=== PATIENT | female | born 1945 | race Caucasian/White ===

== ENCOUNTER → 2016-09-25 | Outpatient (CLI) | payer BC, OTHER ==
[~2016-09-25] VITALS: Ht 165.1 cm; Wt 66.8 kg
[~2016-09-25] MED LIST: ACET-1256 PO; AMOX50TA PO; CHOLTAB3 PO; CITA10TA4 PO; CLON1TAB3 PO; CYAN100020 PO; CYM/30 PO; OMEG10007 PO; PRD/1 PO; PRLSR20 PO; RXC5 PO
[2016-09-25 14:57] VITALS: BP 125/78; PULSE 56; Ht 165.1 cm; Wt 66.8 kg
== END | disposition home or self-care (01) ==
LOC: C.NEUR 13:51
PROVIDERS: ATTEND Internal Medicine Pulmonary Disease
DX: G47.33 Obstructive sleep apnea (adult) (pediatric) (principal); G47.19 Other hypersomnia; G25.81 Restless legs syndrome

== ENCOUNTER → 2016-11-19 | Outpatient (CLI) | payer BC | END | disposition home or self-care (01) | LOC: C.PAPS 07:58 | PROVIDERS: ATTEND Obstetrics & Gynecology | DX: Z12.4 Encounter for screening for malignant neoplasm of cervix (principal); R87.616 Satisfactory cervical smear but lacking transformation zone; N81.4 Uterovaginal prolapse, unspecified; Z78.0 Asymptomatic menopausal state ==

== ENCOUNTER → 2017-01-01 | Outpatient (CLI) | payer BC ==
--- NOTE | 2017-01-01 16:16 | MAMMOGRAPHY REPORT ---
BILATERAL DIGITAL SCREENING MAMMOGRAM WITH CAD: 01/01/2017 CLINICAL HISTORY: Routine screening. TECHNIQUE: Bilateral CC, MLO and repeat left MLO views were obtained. Current study was also evaluat ed with a Computer Aided Detection (CAD) system. COMPARISON: Comparison is made to exams dated: 12/29/2015 mammogram, 12/27/2014 mammogram, 12/24/2013 allan mogram, 12/11/2012 mammogram, 12/07/2011 mammogram, and 12/06/2010 mammogram - [facility] ter. BREAST COMPOSITION: The tissue of both breasts is heterogeneously dense, which may obscure small mas ses. FINDINGS: There is an asymmetry in the lateral posterior left breast on the CC view that is increasi ngly conspicuous compared to prior exams. This is thought to project superiorly on the MLO view. Ad ditional spot compression tomosynthesis views and possibly ultrasound are recommended. There are scattered and grouped stable microcalcifications and benign rim calcifications in the breas ts. Minimal vascular calcification. No other suspicious mass, architectural distortion or cluster of microcalcifications is seen. IMPRESSION: ACR BI-RADS CATEGORY 0: INCOMPLETE EVALUATION: NEED ADDITIONAL IMAGING EVALUATION The asymmetry in the lateral left breast needs additional evaluation. The patient will be called to schedule an appointment. Approximately 10% of breast cancers are not detected with mammography. A negative mammographic report should not delay biopsy if a clinically suggestive mass is present. Gabriela Madera M.D. ay/:01/01/2017 15:30:59 Metal Sorter: Eliza LESLIE(Sage)(Laurence), [facility] letter sent: Addl Imaging 0 BI-RADS Code: ACR BI-RADS Category 0: Incomplete Evaluation: Need Additional Imaging Evaluation
== END | disposition home or self-care (01) ==
LOC: C.MAMM 14:09
PROVIDERS: ATTEND Obstetrics & Gynecology
DX: Z12.31 Encounter for screening mammogram for malignant neoplasm of breast (principal)

== ENCOUNTER → 2017-01-07 | Outpatient (CLI) | payer BC ==
--- NOTE | 2017-01-07 13:13 | MAMMOGRAPHY REPORT ---
UNILATERAL LEFT DIGITAL DIAGNOSTIC MAMMOGRAM TOMOSYNTHESIS AND TARGETED LEFT ULTRASOUND: 01/07/2017 CLINICAL HISTORY: 71-year-old woman called back from screening mammography for an asymmetry in the la teral posterior left breast, best seen on the CC view. TECHNIQUE: Spot compression left CC and MLO today digital and tomosynthesis images were obtained. COMPARISON: Comparison is made to exams dated: 01/01/2017 mammogram, 12/29/2015 mammogram, 12/27/2014 mamm ogram, 12/24/2013 mammogram, 12/11/2012 mammogram, and 12/07/2011 mammogram - [facility] er. BREAST COMPOSITION: The tissue of the left breast is heterogeneously dense, which may obscure small masses. FINDINGS: There is effacement of the asymmetry in the lateral posterior left breast with the spot com pression CC view. No corresponding abnormality, persistent mass or architectural distortion is seen on the associated tomosynthesis images. No suspicious clustered microcalcifications are seen. A few benign appearing punctate microcalcifications and a rim calcification are present in the visualized left breast. Real-time high-resolution ultrasound was performed throughout the lateral left breast including the r etroareolar aspect of the left breast. Normal fibroglandular tissue is seen. A few scattered benign anechoic cysts are also seen. No suspicious solid or cystic mass. IMPRESSION: ACR BI-RADS CATEGORY 2: BENIGN, TARGETED ULTRASOUND ACR BI-RADS CATEGORY 2: BENIGN Effacement of the left lateral asymmetry, and no suspicious sonographic correlate. There is no mammo graphic or targeted sonographic evidence of malignancy in the left breast. Return to annual mammogram screening schedule is recommended. The patient has been verbally notified of the results. Approximately 10% of breast cancers are not detected with mammography. A negative mammographic report should not delay biopsy if a clinically suggestive mass is present. Gabriela Madera M.D. ay/:01/07/2017 12:34:28 International Controller: Ramandeep LESLIE(Sage)(Laurence), [facility] letter sent: Normal 1/2 BI-RADS Code: ACR BI-RADS Category 2: Benign Ultrasound BI-RADS: ACR BI-RADS Category 2: Benign
== END | disposition home or self-care (01) ==
LOC: C.MAMM 08:44
PROVIDERS: ATTEND Obstetrics & Gynecology
DX: R92.8 Other abnormal and inconclusive findings on diagnostic imaging of breast (principal)

== ENCOUNTER → 2017-03-06 | Outpatient (CLI) | payer BC ==
[2017-03-06 09:38] LABS: HEMATOCRIT 38.5 % (37-47); MEAN CELL VOLUME 94.1 fL (80-100); MEAN CORPUSCULAR HEMOGLOBIN 31.3 pg (25-34); MEAN CORPUSCULAR HGB CONC 33.2 g/dl (32-36); MEAN PLATELET VOLUME 9.5 fL (7.4-10.4); PLATELET COUNT 236 K/uL (130-400); RED BLOOD COUNT 4.09 M/uL (4.2-5.4); WHITE BLOOD COUNT 5.35 K/uL (4.8-10.8)
[2017-03-06 10:13] LABS: BLOOD UREA NITROGEN 17 mg/dl (7-18); BUN/CREATININE RATIO 23.5 (10-20); CALCIUM 8.7 mg/dl (8.5-10.1); CARBON DIOXIDE 28 mmol/L (21-32); CHLORIDE 111 mmol/L (98-107); CREATININE 0.74 mg/dl (0.60-1.20); GLUCOSE 87 mg/dl (70-99); POTASSIUM 3.4 mmol/L (3.5-5.1); SODIUM 145 mmol/L (136-145)
== END | disposition home or self-care (01) ==
LOC: C.LAB 08:52
PROVIDERS: ATTEND Family Medicine
DX: Z11.59 Encounter for screening for other viral diseases (principal); K21.9 Gastro-esophageal reflux disease without esophagitis; E53.8 Deficiency of other specified B group vitamins

== ENCOUNTER → 2017-03-26 | Outpatient (CLI) | payer BC ==
[~2017-03-26] VITALS: Ht 160 cm; Wt 67.0 kg
[2017-03-26 14:08] VITALS: BP 113/70; PULSE 57; Ht 160 cm; Wt 67.0 kg
== END | disposition home or self-care (01) ==
LOC: C.NEUR 13:52
PROVIDERS: ATTEND Internal Medicine Pulmonary Disease
DX: G47.30 Sleep apnea, unspecified (principal); G47.00 Insomnia, unspecified

== ENCOUNTER → 2017-06-26 | Outpatient (CLI) | payer BC ==
[2017-06-26 10:39] LABS: BLOOD UREA NITROGEN 20 mg/dl (7-18); BUN/CREATININE RATIO 30.2 (10-20); CALCIUM 8.7 mg/dl (8.5-10.1); CARBON DIOXIDE 30 mmol/L (21-32); CHLORIDE 107 mmol/L (98-107); CHOLESTEROL 207 mg/dl (0-200); CREATININE 0.66 mg/dl (0.60-1.20); GLUCOSE 90 mg/dl (70-99); POTASSIUM 3.8 mmol/L (3.5-5.1); SODIUM 139 mmol/L (136-145); TRIGLYCERIDES 94 mg/dl (0-150); VERY LOW DENSITY LIPOPROT CALC 19 mg/dl
[2017-06-26 10:40] LABS: CHOLESTEROL/HDL RATIO 3.6; HDL CHOLESTEROL 58 mg/dl; LDL CHOLESTEROL CALCULATED 130 mg/dl
== END | disposition home or self-care (01) ==
LOC: C.LAB 09:36
PROVIDERS: ATTEND Family Medicine
DX: Z13.220 Encounter for screening for lipoid disorders (principal); E53.8 Deficiency of other specified B group vitamins; E87.6 Hypokalemia

== ENCOUNTER 2017-08-06 05:54 | Emergency (ER) | payer BC ==
[~2017-08-06] VITALS: Ht 165.1 cm; Wt 66.7 kg
[2017-08-06 05:58] VITALS: TEMP 37.9; Ht 165.1 cm; Wt 66.7 kg
[2017-08-06 06:25] VITALS: O2SAT 93
[2017-08-06] MEDS ORDERED: CITA20TA4 PO (06:25)
[2017-08-06] MEDS ORDERED: CLON0.5T3 PO (06:25)
[2017-08-06] MEDS ORDERED: MELA5CAP PO (06:25)
[2017-08-06] MEDS ORDERED: ACETAMINOPHEN 500 MG TAB PO STA (06:35)
[2017-08-06] MEDS ORDERED: IBUPROFEN 200 MG TAB PO STA (06:35)
[2017-08-06] MEDS ORDERED: ONDANSETRON INJ 2 MG/ML 2 ML VIAL IV STA (06:35)
[2017-08-06] MEDS ORDERED: SODIUM CHLORIDE 0.9% 500ML 500 ML IV STA (06:35)
[2017-08-06 06:41] LABS: BASO % 0.2 %; BASO ABS # 0.02 K/uL (0-0.2); EOS % 0.2 %; EOS ABS # 0.02 K/uL (0-0.5); HEMATOCRIT 42.2 % (37-47); HEMOGLOBIN 14.7 g/dL (12.0-16.0); IG# 0.02 K/uL (0.00-0.02); LYMPH % 16.6 %; LYMPH ABS # 1.45 K/uL (1.2-3.4); MEAN CELL VOLUME 93.2 fL (80-100); MEAN CORPUSCULAR HEMOGLOBIN 32.5 pg (25-34); MEAN CORPUSCULAR HGB CONC 34.8 g/dl (32-36); MEAN PLATELET VOLUME 9.3 fL (7.4-10.4); MONO % 9.3 %; MONO ABS # 0.81 K/uL (0.11-0.59); NEUT % 73.5 %; PLATELET COUNT 184 K/uL (130-400); RED CELL DISTRIBUTION WIDTH CV 13.9 % (11.5-14.5); RED CELL DISTRIBUTION WIDTH SD 47.5 fL (36.4-46.3); WHITE BLOOD COUNT 8.72 K/uL (4.8-10.8)
[2017-08-06] MEDS ORDERED: COUGH DROP (SUGAR FREE) LOZ 24 LOZ/1 BOX PO STA (06:46)
[2017-08-06 06:48] LABS: ALBUMIN 3.6 gm/dl (3.4-5.0); CALCIUM 8.4 mg/dl (8.5-10.1); CREATININE 0.9 mg/dl (0.60-1.20); POTASSIUM 3.8 mmol/L (3.5-5.1)
[2017-08-06 06:50] LABS: TOTAL PROTEIN 7.1 gm/dl (6.4-8.2)
--- NOTE | 2017-08-06 06:54 | EMERGENCY ROOM VISIT NOTE ---
History Report prepared by Mariia: Rodney Blount Under the Supervision of: Dr. Donald Doan M.D. First contact with patient: 06:33 Chief Complaint: FLU LIKE SX Stated Complaint: [id number],HOT FLASHES,RAGGED BREATHING,CON History of Present Illness The patient is a 71 year old white female with a past medical history of previous back surgery who presents to the ED with a cc of a worsening sore throat beginning about a week ago. Positive productive cough, hot flashes, nausea, and vomiting. Negative abdominal pain, leg swelling, melena, hematochezia, diarrhea, or abnormal urinary symptoms. Her temperature in triage was 100.44 F. She is currently taking Citalopram for her hot flashes. She is not on any blood thinners. She did not take any medications for her current symptoms before arrival. Source of History: patient Onset: about a week ago Position: throat Symptom Intensity: moderate Quality: other (Sore) Timing: worsening Associated Symptoms: + fevers, + cough, + nausea, + vomiting, No abdominal pain, No melena, No hematochezia, No diarrhea, No urinary symptoms Review of Systems See HPI for pertinent positives and negatives. A total of ten systems were reviewed and were otherwise negative. Past Medical & Surgical Medical Problems: (1) Lumbar stenosis with neurogenic claudication Family History Omitted secondary to the patient's age. Social History Smoking Status: Former Smoker Smokeless Tobacco Use: No Drug Use: none Marital Status: Housing Status: lives with significant other Occupation Status: retired Current/Historical Medications Scheduled Citalopram Hydrobromide (Citalopram Hydrobromide), 20 MG PO QAM Clonazepam (Klonopin), 0.5 MG PO HS Fish Oil ([place]-3), 1 CAP PO BID Melatonin (Melatonin), 5 MG PO HS Omeprazole (Prilosec), 20 MG PO QAM Scheduled PRN Acetaminophen (Tylenol), 1-2 TAB PO HS PRN for RN Allergies Coded Allergies: No Known Allergies (Verified , 08/06/17) Physical Exam Vital Signs Date Time Temp Pulse Resp B/P (MAP) Pulse Ox O2 Delivery O2 Flow Rate FiO2 08/06/17 07:36 60 16 109/55 95 08/06/17 06:25 64 18 120/60 92 Room Air 08/06/17 06:25 93 Room Air 08/06/17 06:17 62 08/06/17 05:58 37.9 76 20 98/65 95 Room Air Physical Exam GENERAL: Awake, alert, well-appearing, NAD HENT: Normocephalic, atraumatic. EYES: Normal conjunctiva. Sclera non-icteric. NECK: Supple. No nuchal rigidity. FROM. Non-stridulous. RESPIRATORY: Crackles noted to the RUL, no rhonchi or wheezing CARDIAC: RRR, no MRG ABDOMEN: Soft, NTND, BS+ MSK: No chest wall TTP, no LE edema NEURO: GCS 15, CN 2-12 intact, moves all 4s on command SKIN: No rash or jaundice noted. Medical Decision & Procedures ER Provider Diagnostic Interpretation: Radiology results as stated below per my review and radiologist interpretation: CHEST ONE VIEW PORTABLE CLINICAL HISTORY: crackles RUL, cough dyspnea COMPARISON STUDY: 04/17/2016 FINDINGS: Small fixed hiatal hernia. Mild interstitial prominence both lung bases. Upper lungs are clear. No evidence of pneumothorax. IMPRESSION: Small hiatal hernia. Mild prominence of basilar interstitial markings. No well-defined focal infiltrate. The above report was generated using voice recognition software. It may contain grammatical, syntax or spelling errors. Electronically signed by: Reji Velázquez M.D. 08/06/2017 7:18 AM Dictated Date/Time: 08/06/2017 7:18 AM Laboratory Results 08/06/17 06:20 Red Blood Count 4.53, Mean Corpuscular Volume 93.2, Mean Corpuscular Hemoglobin 32.5, Mean Corpuscular Hemoglobin Concent 34.8, Mean Platelet Volume 9.3, Neutrophils (%) (Auto) 73.5, Lymphocytes (%) (Auto) 16.6, Monocytes (%) (Auto) 9.3, Eosinophils (%) (Auto) 0.2, Basophils (%) (Auto) 0.2, Neutrophils # (Auto) 6.40, Lymphocytes # (Auto) 1.45, Monocytes # (Auto) 0.81, Eosinophils # (Auto) 0.02, Basophils # (Auto) 0.02 08/06/17 06:20 Test 08/06/17 06:20 White Blood Count 8.72 K/uL (4.8-10.8) Red Blood Count 4.53 M/uL (4.2-5.4) Hemoglobin 14.7 g/dL (12.0-16.0) Hematocrit 42.2 % (37-47) Mean Corpuscular Volume 93.2 fL (80-100) Mean Corpuscular Hemoglobin 32.5 pg (25-34) Mean Corpuscular Hemoglobin Concent 34.8 g/dl (32-36) Platelet Count 184 K/uL (130-400) Mean Platelet Volume 9.3 fL (7.4-10.4) Neutrophils (%) (Auto) 73.5 % Lymphocytes (%) (Auto) 16.6 % Monocytes (%) (Auto) 9.3 % Eosinophils (%) (Auto) 0.2 % Basophils (%) (Auto) 0.2 % Neutrophils # (Auto) 6.40 K/uL (1.4-6.5) Lymphocytes # (Auto) 1.45 K/uL (1.2-3.4) Monocytes # (Auto) 0.81 K/uL (0.11-0.59) Eosinophils # (Auto) 0.02 K/uL (0-0.5) Basophils # (Auto) 0.02 K/uL (0-0.2) RDW Standard Deviation 47.5 fL (36.4-46.3) RDW Coefficient of Variation 13.9 % (11.5-14.5) Immature Granulocyte % (Auto) 0.2 % Immature Granulocyte # (Auto) 0.02 K/uL (0.00-0.02) Anion Gap 7.0 mmol/L (3-11) Est Creatinine Clear Calc Drug Dose 50.8 ml/min Estimated GFR () 74.0 Estimated GFR (Non- 63.9 BUN/Creatinine Ratio 15.3 (10-20) Calcium Level 8.4 mg/dl (8.5-10.1) Total Bilirubin 0.5 mg/dl (0.2-1) Aspartate Amino Transf (AST/SGOT) 19 U/L (15-37) Alanine Aminotransferase (ALT/SGPT) 18 U/L (12-78) Alkaline Phosphatase 98 U/L (45-117) Total Protein 7.1 gm/dl (6.4-8.2) Albumin 3.6 gm/dl (3.4-5.0) Globulin 3.5 gm/dl (2.5-4.0) Albumin/Globulin Ratio 1.0 (0.9-2) Influenza Type A Antigen Neg for Influ A (NEG) Influenza Type B Antigen Neg for Influ B (NEG) Laboratory results reviewed by me Medications Administered Medications (Trade) Dose Ordered Sig/Mer Route Start Time Stop Time Status Last Admin Dose Admin Ibuprofen (Advil Tab) 400 mg NOW STAT PO 08/06/17 06:35 08/06/17 06:37 DC 08/06/17 06:47 400 MG Acetaminophen (Tylenol Tab) 1,000 mg NOW STAT PO 08/06/17 06:35 08/06/17 06:37 DC 08/06/17 06:48 1,000 MG Sodium Chloride 500 ml @ 500 mls/hr Q1H STAT IV 08/06/17 06:35 08/06/17 07:34 DC 08/06/17 06:47 500 MLS/HR Ondansetron HCl (Zofran Inj) 4 mg NOW STAT IV 08/06/17 06:35 08/06/17 06:37 DC 08/06/17 06:47 4 MG Menthol (Nice Omer) 1 omer NOW STAT PO 08/06/17 06:46 08/06/17 06:47 DC 08/06/17 06:55 1 OMER ECG Indication: vomiting Rate (beats per minute): 64 Rhythm: normal sinus Findings: other (Normal axis, normal intervals, TWI in Lead 3, t-wave flattening in aVF, no other STS changes or TWI) ED Course 0633: The patient was evaluated in room B12B. A complete history and physical exam was performed. 0745: I reevaluated the patient. Discussed results and discharge instructions: She verbalized understanding and agreement. The patient is ready for discharge. Medical Decision The patient is a 71 year old white female with a past medical history of previous back surgery who presents to the ED with a cc of a sore throat beginning about a week ago. Positive productive cough, hot flashes, nausea, and vomiting. Negative abdominal pain, leg swelling, melena, hematochezia, or diarrhea. Differential diagnosis: Etiologies such as viral syndrome, otitis, pharyngitis, pneumonia, influenza, meningitis, urinary tract infection, sepsis, bacteremia, as well as others were entertained. Patient was seen and evaluated the bedside. Patient is mainly complaining of some sore throat beginning on . Patient has had some nausea and vomiting but doesn't complain of any acute nausea. Patient denies any chest pain or shortness of breath. Patient has had a mild productive cough however it is not discolored but is being clear. Patient denies any hemoptysis. Patient on exam is non-stridulous she does have some mild crackles in the right lung. Patient's chest x-ray does not show any focal consolidation. Patient does not have an elevated white blood cell count. Imagine this is more likely a bronchitis than a pneumonia. Patient is currently in the hospital. I did iterate to the patient that she does need to make sure she takes care of herself which includes [id number] medication, symptom control, and eating and drinking. I did discuss all findings with the patient the patient was deemed suitable for outpatient follow-up and treatment. Patient has stable vital signs. Patient of note did have fever upon presentation. Patient was given strict follow-up, discharge, and return precautions. All questions were answered. Patient was deemed suitable for outpatient follow-up at this time. Patient agreed with the plan of care and was safely discharged home. Medication Reconcilliation Current Medication List: was personally reviewed by me Blood Pressure Screening Patient's blood pressure: Low blood pressure Impression Primary Impression: Upper respiratory infection Scribe Attestation The scribe's documentation has been prepared under my direction and personally reviewed by me in its entirety. I confirm that the note above accurately reflects all work, treatment, procedures, and medical decision making performed by me. Departure Information Dispostion Home / Self-Care Referrals Addie Stanley MD (PCP) Forms HOME CARE DOCUMENTATION FORM, IMPORTANT VISIT INFORMATION Patient Instructions ED Upper Resp Infec No Abx Tx, My [facility], Sore Throat Additional Instructions Please return to the emergency department if you have worsening or recurrent symptoms not amenable to at-home treatment. Please call for a follow-up appointment with her primary care physician. Please take your medications as prescribed. If you have other concerns and/or complaints please feel free to also call your primary care physician's office or return the ED for further evaluation, management, and treatment. You may take 400 mg Ibuprofen every 6 hours as needed for pain with food for no more than 2 consecutive days. You may take tylenol 650 mg every 6 hours as needed for pain. You may take motrin and tylenol separately or at the same time. For your sore throat you may use lozenges, hot tea with honey and lemon, and/or salt water gargles. Please continue to practice good dental hygiene. Take your medications as prescribed. You have been examined and treated today on an emergency basis only. This is not a substitute for, or an effort to provide, complete comprehensive medical care. It is impossible to recognize and treat all injuries or illnesses in a single emergency department visit. It is therefore important that you follow up closely with [facility], your PCP, and/or your specialist(s). Call as soon as possible for an appointment. Thank you for your time and consideration. I look forward to speaking with you again soon. Please don't hesitate to call us if you have any questions. Problem Qualifiers Primary Impression: Upper respiratory infection URI type: unspecified viral URI Qualified Codes: J06.9 - Acute upper respiratory infection, unspecified
--- NOTE | 2017-08-06 07:20 | DIAGNOSTIC IMAGING REPORT ---
CHEST ONE VIEW PORTABLE CLINICAL HISTORY: crackles RUL, cough dyspnea COMPARISON STUDY: 04/17/2016 FINDINGS: Small fixed hiatal hernia. Mild interstitial prominence both lung bases. Upper lungs are clear. No evidence of pneumothorax. IMPRESSION: Small hiatal hernia. Mild prominence of basilar interstitial markings. No well-defined focal infiltrate. The above report was generated using voice recognition software. It may contain grammatical, syntax or spelling errors. Electronically signed by: Reji Velázquez M.D. 08/06/2017 7:18 AM Dictated Date/Time: 08/06/2017 7:18 AM
[2017-08-06 07:32] LABS: INFLUENZA B ANTIGEN Neg for Influ B (NEG)
[2017-08-06 07:36] VITALS: BP 109/55; PULSE 60; O2SAT 95
== END 2017-08-06 07:53 | disposition home or self-care (01) ==
LOC: C.EDB 05:55
DX: J06.9 Acute upper respiratory infection, unspecified (principal); Z87.891 Personal history of nicotine dependence; Z79.899 Other long term (current) drug therapy

== ENCOUNTER → 2018-02-26 | Day surgery (SDC) | payer BC ==
[2018-02-19 16:02] VITALS: Ht 166.4 cm; Wt 68.2 kg
[~2018-02-26] VITALS: Ht 166.4 cm; Wt 68.2 kg
[~2018-02-26] MED LIST changes: -AMOX50TA PO; -CHOLTAB3 PO; -CITA10TA4 PO; +CITA20TA4 PO; -CLON1TAB3 PO; -CYAN100020 PO; -CYM/30 PO; +KLN/5 PO; +MULT-506 PO; -PRD/1 PO; +PROPOFOL IV EMULSION 10 MG/ML 20 ML VIAL ONE; -RXC5 PO; +SODIUM CHLORIDE 0.9% 500ML 500 ML IV ONE
--- NOTE | 2018-02-26 14:37 | Endo History and Physical ---
History & Physical Date of Service: Feb 26, 2018. Chief Complaint: Screening Referring Physician: Dr Stanley History of Present Illness 72 yo CF who presents for screening colonoscopy. Past Medical History Anxiety, Reflux Past Surgical History Hx Cardiac Surgery: No Hx Internal Defibrillator: No Hx Pacemaker: No Hx Abdominal Surgery: No Hx of Implantable Prosthesis: No Hx Post-Op Nausea and Vomiting: No Hx Cancer Surgery: Yes (Mole removed from chest) Hx Thoracic Surgery: No Hx Orthopedic: Yes (L HAND SURG, L4-5 DECOMPRESSION POSTERIOR SPINAL FUSION) Hx Urinary Tract Surgery: Yes (BLADDER LIFT) Social History Smoking Status: Former Smoker Hx Substance Use: No Hx Alcohol Use: Yes (5 GLASES OF WINE OR BEER A WEEK) Allergies Coded Allergies: No Known Allergies (Verified , 02/26/18) Current Medications Reported Home Medications Medications Dose Route/Sig Max Daily Dose Days Date Category Multivitamin (Multivitamins) Tab 1 Tab PO DAILY 02/19/18 Reported Klonopin (Clonazepam) 0.5 Mg Tab 0.25 Mg PO HS 08/06/17 Reported Citalopram Hydrobromide 20 Mg Tab 20 Mg PO QAM 90 08/06/17 Reported Tylenol (Acetaminophen) 500 Mg Tab 1-2 Tab PO HS PRN 3 04/17/16 Reported [place]-3 (Fish Oil) 1 Ea Cap 1 Cap PO BID 03/15/15 Reported Prilosec (Omeprazole) 20 Mg Capcr 20 Mg PO QAM 03/15/15 Reported Vital Signs Weight (Kilograms): 68.18 Height (Feet): 5 Height (Inches): 5.5 Date Time Temp Pulse Resp B/P (MAP) Pulse Ox O2 Delivery O2 Flow Rate FiO2 02/26/18 13:54 36.7 45 18 127/64 (85) 98 Room Air Physical Exam General Appearance: WD/WN, no apparent distress Respiratory/Chest: Auscultation: breath sounds normal Cardiovascular: Heart Auscultation: RRR Abdomen: Bowel Sounds: normal Inspection & Palpation: soft, non-distended, no tenderness, guarding & rebound Assessment and Plan Assessment: 72 yo CF who presents for screening colonoscopy. Plan: Proceed with colonoscopy.
--- NOTE | 2018-02-26 15:09 | Discharge Instructions ---
Endoscopy Patient Instructions Date / Procedure(s) Performed Feb 26, 2018. Colonoscopy Allergy Information Coded Allergies: No Known Allergies (Verified , 02/26/18) Discharge Date / Findings Feb 26, 2018. Diverticulosis Internal hemorrhoids Medication Instructions OK to resume all medications today as prescribed Reported Home Medications Medications Dose Route/Sig Max Daily Dose Days Date Category Multivitamin (Multivitamins) Tab 1 Tab PO DAILY 02/19/18 Reported Klonopin (Clonazepam) 0.5 Mg Tab 0.25 Mg PO HS 08/06/17 Reported Citalopram Hydrobromide 20 Mg Tab 20 Mg PO QAM 90 08/06/17 Reported Tylenol (Acetaminophen) 500 Mg Tab 1-2 Tab PO HS PRN 3 04/17/16 Reported [place]-3 (Fish Oil) 1 Ea Cap 1 Cap PO BID 03/15/15 Reported Prilosec (Omeprazole) 20 Mg Capcr 20 Mg PO QAM 03/15/15 Reported Provider Instructions Activity Restrictions - No exercising or heavy lifting for 24 hours. - Do not drink alcohol the day of the procedure. - Do not drive a car or operate machinery until the day after the procedure. - Do not make any important decisions or sign important papers in 24 hours after the procedure. Following Day: - Return to full activity which may include returning to work/school. Diet Start your diet with liquids and light foods (jello, soup, juice, toast). Then eat your usual diet if not nauseated. Treatment For Common After Affects For mild abdominal pain, bloating, or excessive gas: - Rest - Eat lightly - Lie on right side Follow-Up Information Follow-up with Dr Stanley as scheduled Anesthesia Information What You Should Know You have had a procedure that required some medicine to reduce anxiety and discomfort. This treatment is called moderate sedation. After receiving the treatment, you may be sleepy, but you will be able to breathe on your own. The effects of the treatment may last for several hours. Follow these instructions along with Activity/Diet recommendations noted above: * Do NOT do anything where dizziness or clumsiness would be dangerous. * Rest quietly at home today, then you can be up and about tomorrow. * Have a responsible person stay with you the rest of today. * You may have had an I.V. today. If so, you may take the dressing off later today. Recommendations Call your doctor if: * Trouble breathing * Continuous vomiting for more than 24 hours * Temperature above 101 degrees * Severe abdominal pain or bloating * Pain not relieved by pain medicine ordered * There is increased drainage or redness from any incision * A large amount of rectal bleeding greater than 2-3 tablespoons. (If you had a polyp/s removed or have hemorrhoids, a small amount of blood - from the rectum is to be expected.) * You have any unanswered questions or concerns. IN THE EVENT OF A SERIOUS EMERGENCY, GO TO THE NEAREST EMERGENCY ROOM Your discharge instructions were prepared by provider Sabas Lai. Patient Instructions Signature Page Eloisa First Patient (or Guardian) Signature/Date: I have read and understand the instructions given to me by my caregivers. Caregiver/RN/Doctor Signature/Date: The above-named patient and/or guardian has received patient instructions on this date. + Original Patient Signature Page (only) stays with chart. Please make copy for patient.
--- NOTE | 2018-02-26 15:16 | GI REPORT ---
Patient Name: Eloisa Francis Procedure Date: 02/26/2018 2:36 PM Date of : 1945 Admit Type: Outpatient Age: 72 Gender: Female Attending MD: Sabas Lai DO Procedure: Colonoscopy Providers: Sabas Lai DO Referring MD: Addie Stanley Md Indications: Screening for colorectal malignant neoplasm Medicines: Monitored Anesthesia Care Complications: No immediate complications. Estimated Blood Loss: Estimated blood loss: none. Procedure: Pre-Anesthesia Assessment: - Prior to the procedure, a History and Physical was performed, and patient medications and allergies were reviewed. The patient's tolerance of previous anesthesia was also reviewed. The risks and benefits of the procedure and the sedation options and risks were discussed with the patient. All questions were answered, and informed consent was obtained. Prior Anticoagulants: The patient has taken no previous anticoagulant or antiplatelet agents. ASA Grade Assessment: II - A patient with mild systemic disease. After reviewing the risks and benefits, the patient was deemed in satisfactory condition to undergo the procedure. After I obtained informed consent, the scope was passed under direct vision. Throughout the procedure, the patient's blood pressure, pulse, and oxygen saturations were monitored continuously. The Scope was introduced through the anus and advanced to the terminal ileum. The colonoscopy was performed without difficulty. The patient tolerated the procedure well. The quality of the bowel preparation was good. The terminal ileum, ileocecal valve, appendiceal orifice, and rectum were photographed. Findings: The perianal and digital rectal examinations were normal. Multiple small-mouthed diverticula were found in the sigmoid colon. Non-bleeding internal hemorrhoids were found during retroflexion. The hemorrhoids were small. Impression: - Diverticulosis in the sigmoid colon. - Non-bleeding internal hemorrhoids. - No specimens collected. Recommendation: - Resume previous diet. - Continue present medications. - Repeat colonoscopy in 10 years for surveillance. - Return to primary care physician as previously scheduled. Sabas Lai DO 02/26/2018 3:16:17 PM This report has been signed electronically. Note Initiated On: 02/26/2018 2:36 PM Number of Addenda: 0 I attest to the content of the Intraoperative Record and orders documented therein, exceptions below {[id number]}
[2018-02-26 15:35] VITALS: BP 129/72; PULSE 59; O2SAT 97
--- NOTE | 2018-02-26 15:37 | Anesthesiology Progress Note ---
Anesthesia Post Op Note Date & Time Feb 26, 2018 at 15:37 Vital Signs Vital Signs Past 12 Hours Date Time Temp Pulse Resp B/P (MAP) Pulse Ox O2 Delivery O2 Flow Rate FiO2 02/26/18 15:35 59 18 129/72 (91) 97 Room Air 02/26/18 15:21 65 18 122/65 (84) 96 Room Air 02/26/18 15:05 64 18 100/52 (68) 95 Room Air 02/26/18 13:54 36.7 45 18 127/64 (85) 98 Room Air Notes Mental Status: alert / awake / arousable, participated in evaluation Pt Amnestic to Procedure: Yes Nausea / Vomiting: adequately controlled Pain: adequately controlled Airway Patency, RR, SpO2: stable & adequate BP & HR: stable & adequate Hydration State: stable & adequate Anesthetic Complications: no major complications apparent
== END | disposition home or self-care (01) ==
LOC: C.GI 13:21
PROVIDERS: ATTEND Internal Medicine
DX: Z12.11 Encounter for screening for malignant neoplasm of colon (principal); K57.30 Diverticulosis of large intestine without perforation or abscess without bleeding; K64.8 Other hemorrhoids; G47.33 Obstructive sleep apnea (adult) (pediatric); K21.9 Gastro-esophageal reflux disease without esophagitis; F41.9 Anxiety disorder, unspecified; Z79.899 Other long term (current) drug therapy; Z87.891 Personal history of nicotine dependence; M19.90 Unspecified osteoarthritis, unspecified site; Z85.828 Personal history of other malignant neoplasm of skin